=== PATIENT | male | born 1970 | race Caucasian/White ===

== ENCOUNTER 2018-07-23 21:19 | Emergency (ER) | payer OTHER ==
[2018-07-23 21:35] VITALS: RESP 16
--- NOTE | 2018-07-23 21:40 | ED ---
General Adult HPI - General Chief complaint: Alcohol Stated complaint: Petitioned Time Seen by Provider: 07/23/18 21:38 Source: patient, police, RN/MD Mode of arrival: ambulatory Limitations: no limitations - History of Present Illness Initial comments: Luke is a 39-year-old male with a history of alcohol abuse who had been sober however yesterday he was arrested he states he significant legal problems, yesterday evening he decided to drink alcohol he became very intoxicated. Patient did make a statement to his son about wanting to his son then became concerned and called his mother who contacted the police. Police brought the patient in for evaluation of depression and suicidal thoughts. Upon arrival patient continues to state that he only said those things because he was drunk and he does not mean them. Patient did admit to being intoxicated. Patient rested in the emergency department throughout the evening he was reevaluated onc e sober. He again stated that he does recall making inappropriate suicidal statements however he didn't need them he is not suicidal. He does express that he is somewhat disappointed himself and falling off the wagon and he does have some anxiety over the pending legal ramifications. - Related Data Home Medications Medication Instructions Recorded Confirmed Escitalopram [Lexapro] 10 mg PO HS 07/23/18 07/23/18 Allergies Allergy/AdvReac Type Severity Reaction Status Date / Time No Known Allergies Allergy Verified 07/23/18 21:48 Review of Systems ROS Statement: Those systems with pertinent positive or pertinent negative responses have been documented in the HPI. ROS Other: All systems not noted in ROS Statement are negative. Past Medical History Past Medical History: No Reported History History of Any Multi-Drug Resistant Organisms: None Reported Past Surgical History: No Surgical Hx Reported Past Psychological History: Depression Smoking Status: Current every day smoker Past Alcohol Use History: Abuse, Daily, Heavy Past Drug Use History: Marijuana General Exam - General Exam Comments Initial Comments: Physical Exam GENERAL: Patient is well-developed and well-nourished. Patient is nontoxic and well- hydrated and is in no distress. HENT: Normocephalic, Atraumatic. EYES: PERRL, EOMI PULMONARY: Unlabored respirations. No audible rales rhonchi or wheezing was noted. CARDIOVASCULAR: There is a regular rate and rhythm without any murmurs gallops or rubs. ABDOMEN: Soft and nontender with normal bowel sounds. SKIN: Skin is clear with no lesions or rashes and otherwise unremarkable. : Deferred NEUROLOGIC: Patient is alert and oriented x3. Moving all extremities spontaneously MUSCULOSKELETAL: Normal extremities with adequate strength and full range of motion. No lower extremity swelling or edema. No calf tenderness. PSYCHIATRIC: Normal psychiatric evaluation. Limitations: no limitations Limitations: no limitations Course Vital Signs 07/23/18 07/24/18 21:30 01:51 Temperature 97.4 F L 97.5 F L Pulse Rate 110 H 105 H Respiratory 16 16 Rate Blood Pressure 125/88 122/83 O2 Sat by Pulse 96 Oximetry Medical Decision Making - Medical Decision Making was seen and evaluated history was obtained patient placed Says intoxicated 57-year-old male who had made passive statements about wanting to with no specific suicidal plan patient will be evaluated by EP has been sober Patient rested quietly and cooperatively throughout the night. He was evaluated by EPS around 5 AM. At that time he was sober. He did admit to making inappropriate statements. He continues to deny suicidal or homicidal ideation. At this time EPS his recommendation is for outpatient follow-up. Patient agreeable to plan for discharge home. - Lab Data Result diagrams: 07/23/18 22:08 07/23/18 22:08 Lab Results 07/23/18 07/23/18 Range/Units 22:08 22:08 WBC 7.3 (3.8-10.6) k/uL RBC 5.65 (4.30-5.90) m/uL Hgb 16.8 (13.0-17.5) gm/dL Hct 52.2 (39.0-53.0) % MCV 92.4 (80.0-100.0) fL MCH 29.7 (25.0-35.0) pg MCHC 32.2 (31.0-37.0) g/dL RDW 14.9 (11.5-15.5) % Plt Count 607 H (150-450) k/uL Neutrophils % 65 % Lymphocytes % 25 % Monocytes % 6 % Eosinophils % 1 % Basophils % 1 % Neutrophils # 4.8 (1.3-7.7) k/uL Lymphocytes # 1.8 (1.0-4.8) k/uL Monocytes # 0.4 (0-1.0) k/uL Eosinophils # 0.1 (0-0.7) k/uL Basophils # 0.1 (0-0.2) k/uL Sodium 143 (137-145) mmol/L Potassium 4.8 (3.5-5.1) mmol/L Chloride 103 (98-107) mmol/L Carbon Dioxide 24 (22-30) mmol/L Anion Gap 16 mmol/L BUN 12 (9-20) mg/dL Creatinine 0.65 L (0.66-1.25) mg/dL Est GFR (CKD-EPI)AfAm >90 (>60 ml/min/1.73 sqM) Est GFR (CKD-EPI)NonAf >90 (>60 ml/min/1.73 sqM) Glucose 89 (74-99) mg/dL Calcium 9.8 (8.4-10.2) mg/dL Total Bilirubin 0.3 (0.2-1.3) mg/dL AST 40 (17-59) U/L ALT 30 (21-72) U/L Alkaline Phosphatase 98 (38-126) U/L Total Protein 8.2 (6.3-8.2) g/dL Albumin 4.8 (3.5-5.0) g/dL Disposition Clinical Impression: Alcoholic intoxication Disposition: HOME SELF-CARE Condition: Stable Instructions (If sedation given, give patient instructions): Alcohol Intoxication (ED) Is patient prescribed a controlled substance at d/c from ED?: No Referrals: None,Stated [Primary Care Provider] - 1-2 days
[2018-07-23 22:18] LABS: Basophils # (A) 0.1 k/uL (0-0.2); Basophils % (A) 1 %; Eosinophils # (A) 0.1 k/uL (0-0.7); Eosinophils % (A) 1 %; HCT 52.2 % (39.0-53.0); HGB 16.8 gm/dL (13.0-17.5); Lymphocytes # (A) 1.8 k/uL (1.0-4.8); Lymphocytes % (A) 25 %; MCH 29.7 pg (25.0-35.0); MCHC 32.2 g/dL (31.0-37.0); MCV 92.4 fL (80.0-100.0); Mean Platelet Volume 6.2; Monocytes # (A) 0.4 k/uL (0-1.0); Monocytes % (A) 6 %; Neutrophils # (A) 4.8 k/uL (1.3-7.7); Neutrophils % (A) 65 %; Platelet Count 607 k/uL (150-450); RBC 5.65 m/uL (4.30-5.90); RDW 14.9 % (11.5-15.5); WBC 7.3 k/uL (3.8-10.6)
[2018-07-23 22:27] LABS: ALT 30 U/L (21-72); AST 40 U/L (17-59); Albumin 4.8 g/dL (3.5-5.0); Alkaline Phosphatase 98 U/L (38-126); Anion Gap 16 mmol/L; Blood Urea Nitrogen 12 mg/dL (9-20); Calcium 9.8 mg/dL (8.4-10.2); Carbon Dioxide 24 mmol/L (22-30); Chloride 103 mmol/L (98-107); Glucose 89 mg/dL (74-99); Potassium 4.8 mmol/L (3.5-5.1); Sodium 143 mmol/L (137-145); Total Bilirubin 0.3 mg/dL (0.2-1.3); Total Protein 8.2 g/dL (6.3-8.2)
[2018-07-23] MEDS ORDERED: NICOTINE 21MG/24HR PATCH TRANSDERM STA (22:45)
[2018-07-24 01:53] VITALS: TEMP 97.5
[2018-07-24 06:49] VITALS: BP 123/80; PULSE 93
== END 2018-07-24 06:54 | disposition home or self-care (01) ==
LOC: EC 21:19
DX: F10.129 Alcohol abuse with intoxication, unspecified (principal); R45.851 Suicidal ideations; F32.9 Major depressive disorder, single episode, unspecified; F17.200 Nicotine dependence, unspecified, uncomplicated; Z79.899 Other long term (current) drug therapy
CPT/HCPCS: 36415; 80053; 82075; 85025; 99284